=== PATIENT | female | born 1960 | race Two or more races ===

== ENCOUNTER 2019-12-26 08:08 | Emergency (ER) | payer OTHER ==
[~2019-12-26] VITALS: Ht 152.4 cm; Wt 94.3 kg
[2019-12-26] MEDS ORDERED: ZESTRIL20 MG PO (08:43)
[2019-12-26] MEDS ORDERED: TUSSI PRES-B L480 ML PO (12:25)
[2019-12-26] MEDS ORDERED: MEDROLPACK PO (12:25)
[2019-12-26] MEDS ORDERED: OSEL75CA PO (12:25)
== END 2019-12-26 12:31 | disposition home or self-care (01) ==
LOC: ER 08:08
DX: J10.1 Influenza due to other identified influenza virus with other respiratory manifestations (principal); R05 Cough; Z03.818 Encounter for observation for suspected exposure to other biological agents ruled out